=== PATIENT | female | born 1980 | race African-American/Black ===

== ENCOUNTER 2018-03-17 21:59 | Emergency (ER) | payer SELFPAY ==
[~2018-03-17] VITALS: Ht 172.7 cm; Wt 64.4 kg
[~2018-03-17 21:59] MED LIST: ACETAMINOPHEN-1 EAC1 ORAL; AUGMENTIN 875-1 EAC1 ORAL; NKM
[2018-03-17 22:26] VITALS: BP 111/74
[2018-03-17] MEDS ORDERED: IBUPROFEN600 MG ORAL (22:42)
[2018-03-17] MEDS ORDERED: AUGMENTIN 875-1 EAC1 ORAL (22:42)
--- NOTE | 2018-03-17 22:45 | Emergency Room Report ---
History of Present Illness General Chief Complaint: Earache Source: Patient Present Illness HPI 37-year-old healthy female presents with right ear pain for the past few days, reports it's achy, it's worse whenever the air hits it, she reports no fevers, but does report right-sided headache, denies hearing loss or tinnitus. She's had similar episodes about a year ago and diagnosed with middle ear infection. She denies any recent swimming, or water exposure. Allergies: Coded Allergies: IBUPROFEN (Verified Allergy, Unknown, 03/27/16) Patient History Past Medical History: see triage record Social History: Reports: smoking Last Menstrual Period: 03/01/18 Reviewed Nursing Documentation: PMH: Agreed; PSxH: Agreed Nursing Documentation-PMH Past Medical History: No Stated History Review of Systems All Other Systems: negative except mentioned in HPI Physical Exam Vital Signs Date Time Temp Pulse Resp B/P (MAP) Pulse Ox O2 Delivery O2 Flow Rate FiO2 03/17/18 22:08 98.2 76 18 111/74 98 Room Air 98.2 Sp02 EP Interpretation: reviewed, normal General Appearance: no apparent distress, alert, non-toxic Head: normocephalic Eyes: bilateral eye normal inspection, bilateral eye PERRL, bilateral eye EOMI ENT: normal ENT inspection, hearing grossly normal, normal pharynx, no angioedema, normal voice, TMs + canals normal - Right TM with erythema, no bulging, no effusion, but pain with pulling on pinna, not with pushing on tragus , moist mucus membranes Neck: normal inspection, full range of motion, supple, supple/symm/no masses Respiratory: chest non-tender, lungs clear, normal breath sounds, chest symmetrical, palpation of chest normal Cardiovascular #1: regular rate, rhythm Gastrointestinal: normal inspection, non tender, soft, no mass, no guarding, no rebound Rectal: deferred Genitourinary: normal inspection, no CVA tenderness Musculoskeletal: back normal, gait/station normal, normal range of motion, non- tender, no calf tenderness Neurologic: alert, responsive, 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 tested, motor strength/tone normal, sensory intact, speech normal Psychiatric: judgement/insight normal, mood/affect normal Skin: normal color, no rash, warm/dry, normal turgor Lymphatic: no adenopathy Medical Decision Making Diagnostic Impression: Primary Impression: Otitis media Additional Impression: Earache, right ER Course Patient with otitis media, will give ibuprofen and Augmentin, she reports that she travels up and down from [place] regularly, I suspect that her ears may not be popping and she may have some sort of eustachian tube dysfunction on the right caused the recurrent otitis media Last Vital Signs Date Time Temp Pulse Resp B/P (MAP) Pulse Ox O2 Delivery O2 Flow Rate FiO2 03/17/18 22:26 98.2 76 18 111/74 98 Room Air 98.2 Disposition: HOME, SELF-CARE Condition: Stable Scripts Ibuprofen* (MOTRIN*) 600 Mg Tablet 600 MG ORAL Q8H PRN for For Pain, #30 TAB 0 Refills Prov: WHITLEY CHERRY M.D 03/17/18 Amoxicillin/Potassium Clav 875-125* (AUGMENTIN 875-125 TABLET*) 1 Each Tablet 1 TAB ORAL TWICE A DAY, #14 TAB Prov: WHITLEY CHERRY M.D 03/17/18 Departure Forms: Return to Work Return to Work in (Days): 2 Patient Instructions: Otitis Media, Adult WHITLEY CHERRY M.D Mar 17, 2018 22:45
[2018-03-17] MEDS ORDERED: Tylenol #3 tab (300mg/30mg) ORAL ONE (23:00)
[2018-03-17 23:11] VITALS: BP 108/67
== END 2018-03-17 23:11 | disposition home or self-care (01) ==
LOC: EMR 22:49
DX: H66.91 Otitis media, unspecified, right ear (principal); F17.200 Nicotine dependence, unspecified, uncomplicated; Z88.6 Allergy status to analgesic agent
CPT/HCPCS: 99283

== ENCOUNTER 2018-08-22 17:49 | Emergency (ER) | payer SELFPAY ==
[~2018-08-22] VITALS: Ht 172.7 cm; Wt 68.0 kg
[~2018-08-22 17:49] MED LIST changes: +IBUPROFEN600 MG ORAL
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
[2018-08-22 18:15] VITALS: BP 124/77
[2018-08-22] MEDS ORDERED: Norco 5mg/325mg tab ORAL ONE (19:00)
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
--- NOTE | 2018-08-22 19:11 | NUR ---
Garcia card in [facility] - 08/22/18 at 1912 by KATIE HAND-OFF: Report given to
--- NOTE | 2018-08-22 19:12 | NUR ---
HAND-OFF: Report given to ELIZABETH Bowie.
--- NOTE | 2018-08-22 19:21 | NUR ---
ED Nurse Note: Received patient from ELIZABETH Narayanan. Pt AO4. NAD. Addendum: 08/22/18 at 192 by LCRISOSTOM time 1911
--- NOTE | 2018-08-22 19:21 | NUR ---
ED Nurse Note: Imaging at bedside
--- NOTE | 2018-08-22 20:13 | Diagnostic Imaging Report ---
EXAM: XR Left Ribs and AP Chest, 3 or More Views CLINICAL HISTORY: PAIN TECHNIQUE: Frontal and oblique views of the left ribs and frontal view of the chest. COMPARISON: No relevant prior studies available. FINDINGS: Lungs: Unremarkable. No consolidation. Pleural space: Unremarkable. No pneumothorax. Heart: Unremarkable. No cardiomegaly. Mediastinum: Unremarkable. Bones/joints: Unremarkable. No acute fracture. IMPRESSION: Normal left rib x-rays.
[2018-08-22] MEDS ORDERED: DIFLUCAN100 MG ORAL (20:32)
[2018-08-22] MEDS ORDERED: ACETAMINOPHEN-1 EAC1 ORAL (20:32)
[2018-08-22] MEDS ORDERED: KENALOG1 APPLIC TOPIC (20:35)
[2018-08-22] MEDS ORDERED: LAMISIL15 GM TOPIC (20:35)
[2018-08-22 20:45] VITALS: BP 124/77
--- NOTE | 2018-08-22 20:45 | NUR ---
ED Nurse Note: Patient cleared for discharge per ERMD. AO4. NAD. VSS. Patient given prescriptions and discharge instructions; verbalized understanding. ID band removed. Patient ambulated out with all personal belongings with steady gait.
== END 2018-08-22 20:45 | disposition home or self-care (01) ==
LOC: EMR 18:30
DX: S20.212A Contusion of left front wall of thorax, initial encounter (principal); B35.3 Tinea pedis; B37.3 Candidiasis of vulva and vagina; Z88.6 Allergy status to analgesic agent; Z88.0 Allergy status to penicillin; Y92.9 Unspecified place or not applicable; W22.8XXA Striking against or struck by other objects, initial encounter
CPT/HCPCS: 99283

== ENCOUNTER 2019-02-25 23:54 | Emergency (ER) | payer SELFPAY ==
[~2019-02-25] VITALS: Ht 172.7 cm; Wt 66.7 kg
[~2019-02-25 23:54] MED LIST changes: +DIFLUCAN100 MG ORAL; +KENALOG1 APPLIC TOPIC; +LAMISIL15 GM TOPIC
[2019-02-26] VITALS: BP 107/74
--- NOTE | 2019-02-26 | NUR ---
ED Nurse Note: Patient walked into ED c/o bug bites located in the back, patient presents with multiple bug bites across her back. patient is alert and oriented x4, rates her pain a 7/10 pain. will wait for further orders
[2019-02-26] MEDS ORDERED: BENADRYL25 MG ORAL (00:20)
[2019-02-26] MEDS ORDERED: BACTRIM DS TAB1 EAC1 ORAL (00:20)
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
[2019-02-26 00:30] VITALS: BP 107/74
[2019-02-26] MEDS ORDERED: Bactrim-DS 1 tab ORAL ONE (00:30)
--- NOTE | 2019-02-26 00:30 | NUR ---
ER DISCHARGE NOTE: Patient is cleared to be discharged per ERMD, pt is aox4, on room air, with stable vital signs. pt was given dc and prescription instructions, pt was able to verbalize understanding, pt id band removed without complications. pt is able to ambulate with steady gait. pt took all belongings.
== END 2019-02-26 00:30 | disposition home or self-care (01) ==
LOC: EMR 02-26 00:17
DX: R21 Rash and other nonspecific skin eruption (principal); L03.312 Cellulitis of back [any part except buttock and flank]; Z88.0 Allergy status to penicillin; Z88.6 Allergy status to analgesic agent
CPT/HCPCS: 99282

== ENCOUNTER 2020-02-14 21:39 | Emergency (ER) | payer SELFPAY ==
[~2020-02-14] VITALS: Ht 172.7 cm; Wt 64.4 kg
[~2020-02-14 21:39] MED LIST changes: +BACTRIM DS TAB1 EAC1 ORAL; +BENADRYL25 MG ORAL; +METRONIDAZOLE500 MG ORAL
[2020-02-14 21:48] VITALS: BP 125/63
[2020-02-14] MEDS ORDERED: NEURONTIN300 MG ORAL (22:16)
--- NOTE | 2020-02-14 22:17 | Emergency Room Report ---
History of Present Illness General Chief Complaint: Upper Extremity Injury Source: Patient Present Illness HPI This is a 39-year-old female with no significant past medical history. She presents with 2 complaints. First complaint is bilateral hand numbness. This been ongoing for 2 months now. 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 She came in today because when she tried to twist off a bottle her hand was crampy. No trauma. No fever chills. Worse with working. Better with rest. Pain is 7 out of 10. No swelling. No neck pain. Her second complaint is that she had a spider bite 2 weeks ago. Is to her right ankle. It was red and swollen. She says she cleaned it up and symptoms resolved in a week. She came in now just to see if she needs a dose of antibiotics. 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 Patient History Past Medical History: see triage record, old chart reviewed Past Surgical History: none Pertinent Family History: none Social History: Denies: smoking Last Menstrual Period: 02/02/2020 Now: No Immunizations: other Reviewed Nursing Documentation: PMH: Agreed; PSxH: Agreed Review of Systems Eye: Denies: eye pain, blurred vision ENT: Denies: ear pain, nose congestion, throat swelling Respiratory: Denies: cough, shortness of breath Cardiovascular: Denies: chest pain, palpitations Gastrointestinal: Denies: abdominal pain, diarrhea, nausea, vomiting Musculoskeletal: Reports: joint pain; Denies: back pain Skin: Denies: rash Neurological: Denies: headache, numbness Endocrine: Denies: increased thirst, increased urine Hematologic/Lymphatic: Denies: easy bruising All Other Systems: negative except mentioned in HPI Physical Exam Vital Signs Date Time Temp Pulse Resp B/P (MAP) Pulse Ox O2 Delivery O2 Flow Rate FiO2 02/14/20 21:42 98.1 87 19 127/78 (94) 97 Room Air Vitals normal Sp02 EP Interpretation: reviewed, normal General Appearance: well appearing, no apparent distress, alert Head: normocephalic, atraumatic Eyes: bilateral eye PERRL, bilateral eye EOMI ENT: hearing grossly normal, normal pharynx Neck: full range of motion, supple, no meningismus Respiratory: chest non-tender, lungs clear, normal breath sounds Cardiovascular #1: regular rate, rhythm, no murmur Gastrointestinal: normal bowel sounds, non tender, no mass, no organomegaly, no bruit, non-distended Musculoskeletal: back normal, normal range of motion, gait/station normal, other - She has full range of motion of bilateral wrists and fingers. No deformity or swelling. Right ankle shows no redness, pain, warmth or evidence of infection. Psychiatric: mood/affect normal Procedures Splinting Splinting : Consent: Verbal Location: Bilateral wrist Pre-Made Type: velcro Splint: wrist Pre-Proc Neuro Vasc Exam: normal Post-Proc Neuro Vasc Exam: normal Patient Tolerated: Well Complications: None Medical Decision Making Diagnostic Impression: Primary Impression: Carpal tunnel syndrome of left wrist Additional Impression: Carpal tunnel syndrome of right wrist ER Course Patient presents with symptoms of possible carpal tunnel syndrome bilaterally. The fact that affect all the fingers points toward more than just the median nerve. There is no evidence of any acute fracture dislocation. No evidence of any deformity. Will discharge home. I see no evidence of any infection to her ankle. No need for antibiotics. Last Vital Signs Date Time Temp Pulse Resp B/P (MAP) Pulse Ox O2 Delivery O2 Flow Rate FiO2 02/14/20 21:48 98.2 66 19 125/63 97 Room Air Status: improved Disposition: HOME, SELF-CARE Condition: Stable Scripts Gabapentin (Neurontin) 300 Mg Capsule 300 MG ORAL THREE TIMES A DAY, #30 CAP 0 Refills Prov: Napoleon Vo MD 02/14/20 Additional Instructions: Follow-up with your doctor in 7 days. Since this happened at work, you may need to follow-up with Workmen's Comp. doctor. 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 Wear splint for comfort. Return if symptoms worsen. Napoleon Vo MD Feb 14, 2020 22:17
[2020-02-14 22:30] VITALS: BP 127/72
[2020-02-14 22:45] VITALS: BP 127/72
== END 2020-02-14 22:45 | disposition home or self-care (01) ==
LOC: EMR 22:37
DX: G56.03 Carpal tunnel syndrome, bilateral upper limbs (principal); Z88.6 Allergy status to analgesic agent; Z88.0 Allergy status to penicillin
CPT/HCPCS: 99282

== ENCOUNTER 2020-07-10 18:11 | Emergency (ER) | payer SELFPAY ==
[~2020-07-10] VITALS: Ht 172.7 cm; Wt 77.1 kg
[~2020-07-10 18:11] MED LIST changes: +NEURONTIN300 MG ORAL
--- NOTE | 2020-07-10 18:20 | NUR ---
ED Nurse Note:pt. c/o back pain and was given pain meds, also visual acuity checked and documented
[2020-07-10] MEDS ORDERED: Methocarbamol 750mg tab ORAL ONE (18:45)
[2020-07-10] MEDS ORDERED: Ketorolac 30mg Inj IM ONE (18:45)
--- NOTE | 2020-07-10 19:00 | NUR ---
ED Nurse Note: ERMD AT BEDSIDE
--- NOTE | 2020-07-10 19:00 | Diagnostic Imaging Report ---
History: TRAUMA Exam: CT C SPINE Without Contrast Technique more: CTDI is 20.2 mGy and DLP is 533.1 mGy-cm. Technique more: One or more of the following dose reduction techniques were used: automated exposure control, adjustment of the mA and/or kV according to patient size, use of iterative reconstruction technique. Comparison: None available FINDINGS: No fracture or malalignment. The disc spaces appear within limits. No prevertebral swelling. The visualized apices are clear. IMPRESSION: No fracture or malalignment.
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
[2020-07-10] MEDS ORDERED: ERYTHROMYCIN3.5 GM RIGHT EYE (19:05)
[2020-07-10] MEDS ORDERED: IBUPROFEN600 M1 ORAL (19:05)
[2020-07-10] MEDS ORDERED: LIDODERM700 M1 TOPIC (19:05)
[2020-07-10] MEDS ORDERED: ROBAXIN-500MG ORAL (19:05)
--- NOTE | 2020-07-10 19:14 | NUR ---
ER DISCHARGE NOTE: Patient is cleared to be discharged HOME per ERMD, pt is aox4, 99% on room air, with stable vital signs. pt was given dc and prescription instructions, pt was able to verbalize understanding, pt id band removed without complications. pt is able to ambulate with steady gait. pt took all belongings.
[2020-07-10 19:21] VITALS: BP 131/79
== END 2020-07-10 19:14 | disposition home or self-care (01) ==
LOC: EMR 19:10
DX: S16.1XXA Strain of muscle, fascia and tendon at neck level, initial encounter (principal); H00.012 Hordeolum externum right lower eyelid; Z88.6 Allergy status to analgesic agent; Z88.0 Allergy status to penicillin; M25.512 Pain in left shoulder
CPT/HCPCS: 72125; 81025; 96372; 99284; J1885